=== PATIENT | female | born 1980 | race African-American/Black ===

== ENCOUNTER 2017-05-14 16:21 | Emergency (ER) | payer OTHER ==
[~2017-05-14] VITALS: Ht 152.4 cm; Wt 104.3 kg
--- NOTE | 2017-05-14 16:40 | PHYS DOC ---
Adult General Chief Complaint Chief Complaint: ASTHMA HPI HPI Patient is a 36 year old female with history of asthma who presents with shortness of breath that began this morning. Patient denies any fever. She states she has a slight cough. She states she has tried using breathing treatments at home with no relief. She was given a breathing treatment by EMS and she states she is feeling better. Review of Systems Review of Systems Constitutional: Denies fever or chills [] Eyes: Denies change in visual acuity, redness, or eye pain [] HENT: Denies nasal congestion or sore throat [] Respiratory: cough and shortness of breath [] Cardiovascular: No additional information not addressed in HPI [] GI: Denies abdominal pain, nausea, vomiting, bloody stools or diarrhea [] : Denies dysuria or hematuria [] Musculoskeletal: Denies back pain or joint pain [] Integument: Denies rash or skin lesions [] Neurologic: Denies headache, focal weakness or sensory changes [] All other systems were reviewed and found to be within normal limits, except as documented in this note. Current Medications Current Medications Current Medications Medications (Trade) Dose Ordered Sig/Kelsey Start Time Stop Time Status Last Admin Dose Admin Albuterol/ Ipratropium (Duoneb) 3 ml 1X ONCE 05/14/17 17:15 05/14/17 17:16 DC 05/14/17 17:15 3 ML Dexamethasone Sodium Phosphate (Decadron) 10 mg 1X ONCE 05/14/17 17:15 05/14/17 17:16 DC 05/14/17 16:55 10 MG Allergies Allergies Allergies Coded Allergies Type Severity Reaction Last Updated Verified No Known Drug Allergies 05/14/17 No Physical Exam Physical Exam Constitutional: Well developed, well nourished, no acute distress, non-toxic appearance. [] HENT: Normocephalic, atraumatic, bilateral external ears normal, oropharynx moist, no oral exudates, nose normal. [] Eyes: PERRLA, EOMI, conjunctiva normal, no discharge. [] Neck: Normal range of motion, no tenderness, supple, no stridor. [] Cardiovascular:Heart rate regular rhythm, no murmur [] Lungs & Thorax: slightly diminished breath sounds to posterior lung bases. No wheezing. Abdomen: Bowel sounds normal, soft, no tenderness, no masses, no pulsatile masses. [] Skin: Warm, dry, no erythema, no rash. [] Back: No tenderness, no CVA tenderness. [] Extremities: No tenderness, no cyanosis, no clubbing, ROM intact, no edema. [] Neurologic: Alert and oriented X 3, normal motor function, normal sensory function, no focal deficits noted. [] Psychologic: Affect normal, judgement normal, mood normal. [] Current Patient Data Vital Signs Vital Signs Date Time Temp Pulse Resp B/P (MAP) Pulse Ox O2 Delivery O2 Flow Rate FiO2 05/14/17 17:15 98 Room Air 05/14/17 16:41 98.3 103 20 98.3 EKG EKG [] Radiology/Procedures Radiology/Procedures [] Course & Med Decision Making Course & Med Decision Making Pertinent Labs and Imaging studies reviewed. (See chart for details) Patient is in the ED with symptoms of asthma exacerbation including cough and shortness of breath. She came via EMS and was given a breathing treatment. She feels slightly better. Chest x-ray interpreted by radiologist was negative for any acute findings. Vitals are stable. Patient was given Decadron and a DuoNeb treatment in the ED. She feels better. She was discharged with prednisone for 4 more days and albuterol treatments. I recommended she follows up with her own PCP in the next coming week. She is provided return precautions and discharged in stable condition. Dragon Disclaimer Natividad Disclaimer This electronic medical record was generated, in whole or in part, using a voice recognition dictation system. Departure Departure Impression: Primary Impression: Asthma exacerbation Disposition: 01 HOME, SELF-CARE Condition: STABLE Patient Instructions: Asthma, Adult, [id number] Additional Instructions: You were seen for an acute asthma exacerbation. Please follow-up with your primary care doctor next week. Use the prescribed medications as ordered. Come back to the emergency room at any point symptoms worsen. Scripts Prednisone (PREDNISONE) 50 Mg Tablet 1 TAB PO DAILY, #4 TAB Prov: LINNETTE CLINTON APRN 05/14/17 Albuterol Sulfate (Proair Respiclick) 90 Mcg Aer.pow.ba 1 PUFF IH PRN Q6HRS Y for SHORTNESS OF BREATH, #1 INHALER Prov: LINNETTE CLINTON APRN 05/14/17 Problem Qualifiers Primary Impression: Asthma exacerbation Asthma severity: mild Asthma persistence: intermittent Qualified Codes: J45.21 - Mild intermittent asthma with (acute) exacerbation LINNETTE CLINTON INCLUSION MANAGER May 14, 2017 16:40
--- NOTE | 2017-05-14 17:05 | RAD ---
PA AND LATERAL CHEST RADIOGRAPH Clinical Indication: shortness of breath. Comparison: None. Findings: The cardiomediastinal silhouette is normal. Pulmonary vasculature is normal. The lungs are clear. No pleural effusion or pneumothorax is seen. There is no acute bone abnormality. IMPRESSION: No acute cardiopulmonary process.
[2017-05-14] MEDS ORDERED: IPRATRPIUM/ALBUTEROL 0.5/2.5MG 3 ML NEBU. NEB ONE (17:15)
[2017-05-14] MEDS ORDERED: DEXAMETHASONE SOD PHOS 20 MG/5 ML VIAL. IM ONE (17:15)
[2017-05-14 17:45] VITALS: BP 132/78
[2017-05-14] MEDS ORDERED: PRED50TA PO (17:45)
[2017-05-14] MEDS ORDERED: PROAIR RESPICL90 MCG IH (17:45)
== END 2017-05-14 18:00 | disposition home or self-care (01) ==
LOC: ER 16:21
DX: J45.21 Mild intermittent asthma with (acute) exacerbation (principal)
CPT/HCPCS: 71020; 94250; 94640; 96372; 99284; J1100; J7620